=== PATIENT | female | born 1955 | race Hispanic/Latino ===

== ENCOUNTER → 2022-05-02 | Outpatient (CLI) | payer MEDICARE | LOC: DX 10:02 | PROVIDERS: ATTEND Family Medicine | DX: M81.0 Age-related osteoporosis without current pathological fracture (principal); M25.552 Pain in left hip; M25.551 Pain in right hip; M54.9 Dorsalgia, unspecified; M25.562 Pain in left knee; M16.0 Bilateral primary osteoarthritis of hip; Z68.31 Body mass index [BMI] 31.0-31.9, adult | CPT/HCPCS: 77080 ==